=== PATIENT | male | born 1980 | race Hispanic/Latino ===

== ENCOUNTER 2019-01-20 18:33 | Emergency (ER) | payer SELFPAY ==
[2019-01-20] MEDS ORDERED: KETOROLAC 30 MG/1 ML INJ IV ONE (19:18)
[2019-01-20] MEDS ORDERED: SODIUM CHLORIDE 0.9% 1000 ML 1,000 ML IV ONE (19:19)
[2019-01-20] MEDS ORDERED: ONDANSETRON 4 MG/2 ML INJ IV ONE (19:19)
[2019-01-20 19:40] LABS: Basophils % (Auto) 0.5 % (0.0-1.8); Eosinophils # (Auto) 0.4 K/mm3 (0.0-0.4); Eosinophils % (Auto) 3.9 % (0.0-4.3); Hematocrit 40.8 % (35.5-45.6); Hemoglobin 13.7 gm/dl (11.8-15.2); Lymphocytes # (Auto) 1.4 K/mm3 (1.2-5.4); Mean Corpuscular HGB Conc 34 % (32-34); Mean Corpuscular Volume 97 fl (84-94); Monocytes # (Auto) 1.3 K/mm3 (0.0-0.8); Monocytes % (Auto) 13.8 % (0.0-7.3); Platelet Count 226 K/mm3 (140-440); Red Blood Count 4.19 M/mm3 (3.65-5.03); Red Cell Distribution Width 12.6 % (13.2-15.2)
[2019-01-20 20:02] LABS: Alanine Aminotransferase 30 units/L (7-56); Albumin 3.8 g/dL (3.9-5); BUN/Creatinine Ratio 16; Blood Urea Nitrogen 18 mg/dL (9-20); Calcium 8.8 mg/dL (8.4-10.2); Hemolysis Index 6
[2019-01-20] MEDS ORDERED: SULFAMETHOXAZOLE/TRIMETHOPRIM 800/160MG DS TAB PO ONE (20:15)
[2019-01-20] MEDS ORDERED: oxyCODONE /ACETAMINOPHEN 5-325MG TAB PO ONE (20:15)
[2019-01-20 20:16] LABS: Erythrocyte Sedimentation Rate 8 mm/Hr (0-20)
--- NOTE | 2019-01-20 20:27 | Emergency Department Report ---
ED Extremity Problem HPI - General Chief complaint: Extremity Problem,Nontraumatic Stated complaint: RT LEG PAIN Source: patient Mode of arrival: Ambulatory Limitations: No Limitations - History of Present Illness Initial comments: Patient is a 38-year-old white male with no past medical history who presents to the ED with complaint of acute onset persistent severe right foot pain with swelling due to erythematous maculopapular nonfluctuant rash on the dorsal right foot for the last 4 days. Patient states that the pain and the swelling got worse in the last 2 days. Patient denies dizziness, traumatic injury, nausea, vomiting, fever, chills, numbness and tingling or weakness of the right foot. Patient states that the pain is worse with any weightbearing or ambulation. MD Complaint: extremity pain (right foot), extremity swelling (right foor), other (Erythematous painful swollen right foot) -: Sudden, days(s) (4) Location: right, lower extremity (foot) History of Same: No -: Yes arthralgia, No fever, No associated dyspnea, No associated chest pain Radiation: none Severity scale (0 -10): 9 Quality: aching, sharp, constant Improves with: nothing Worsens with: weight bearing, walking, palpation Associated Symptoms: denies other symptoms, arthralgias, rash (erythematous maculopapular nonfluctuant rash). denies: chest pain, shortness of breath, fever, myalgias - Related Data Previous Rx's Medication Instructions Recorded Last Taken Type Clindamycin [Clindamycin CAP] 300 mg PO Q8HR #60 capsule 01/20/19 Unknown Rx HYDROcodone/APAP 5-325 [Balsam 1 each PO Q6HR PRN #12 tablet 01/20/19 Unknown Rx 5/325] Ibuprofen [Motrin] 800 mg PO Q8HR PRN #24 tablet 01/20/19 Unknown Rx Ondansetron [Zofran Odt] 4 mg PO Q6HR PRN #15 tab.rapdis 01/20/19 Unknown Rx Sulfamethoxazole/Trimethoprim 1 each PO Q12H #20 tablet 01/20/19 Unknown Rx [Bactrim DS TAB] Allergies Allergy/AdvReac Type Severity Reaction Status Date / Time No Known Allergies Allergy Unverified 01/20/19 18:38 ED Review of Systems ROS: Stated complaint: RT LEG PAIN Other details as noted in HPI Constitutional: denies: chills, fever Eyes: denies: eye pain, eye discharge, vision change ENT: denies: ear pain, throat pain Respiratory: denies: cough, shortness of breath, wheezing Cardiovascular: denies: chest pain, palpitations, syncope, paroxysmal nocturnal dyspnea Endocrine: no symptoms reported. denies: excessive sweating, flushing, intolerance to cold, intolerance to heat Gastrointestinal: denies: abdominal pain, nausea, vomiting, diarrhea Genitourinary: denies: urgency, dysuria Musculoskeletal: arthralgia (painful swollen dorsal foot due to erythematous maculopapular rash), myalgia. denies: back pain, joint swelling Skin: rash (erythematous micropapular nonfluctuant rash with tenderness on dorsal right foot), change in color. denies: lesions Neurological: denies: headache, weakness, paresthesias Psychiatric: denies: anxiety, depression Hematological/Lymphatic: denies: easy bleeding, easy bruising ED Past Medical Hx - Past Medical History Previous Medical History?: Yes Hx Asthma: Yes - Surgical History Past Surgical History?: No - Social History Smoking Status: Current Every Day Smoker Substance Use Type: Alcohol - Medications Home Medications: Home Medications Medication Instructions Recorded Confirmed Last Taken Type Clindamycin [Clindamycin CAP] 300 mg PO Q8HR #60 capsule 01/20/19 Unknown Rx HYDROcodone/APAP 5-325 [Balsam 1 each PO Q6HR PRN #12 tablet 01/20/19 Unknown Rx 5/325] Ibuprofen [Motrin] 800 mg PO Q8HR PRN #24 tablet 01/20/19 Unknown Rx Ondansetron [Zofran Odt] 4 mg PO Q6HR PRN #15 tab.rapdis 01/20/19 Unknown Rx Sulfamethoxazole/Trimethoprim 1 each PO Q12H #20 tablet 01/20/19 Unknown Rx [Bactrim DS TAB] ED Physical Exam - General Limitations: No Limitations General appearance: alert, in no apparent distress - Head Head exam: Present: atraumatic, normocephalic, normal inspection - Eye Eye exam: Present: normal appearance, PERRL, EOMI Pupils: Present: normal accommodation - ENT ENT exam: Present: normal exam, normal orophraynx, mucous membranes moist, TM's normal bilaterally, normal external ear exam - Neck Neck exam: Present: normal inspection, full ROM - Respiratory Respiratory exam: Present: normal lung sounds bilaterally. Absent: respiratory distress, wheezes, rales, rhonchi, chest wall tenderness, accessory muscle use, decreased breath sounds - Cardiovascular Cardiovascular Exam: Present: regular rate, normal rhythm, normal heart sounds. Absent: systolic murmur, diastolic murmur, rubs, gallop - GI/Abdominal GI/Abdominal exam: Present: soft, normal bowel sounds. Absent: tenderness, rebound, hyperactive bowel sounds, hypoactive bowel sounds, organomegaly - Rectal Rectal exam: Present: deferred - Extremities Exam Extremities exam: Present: normal inspection, full ROM, tenderness (palpable severe right foot tenderness due to erythematous maculopapular nonfluctuant rash), normal capillary refill, joint swelling - Back Exam Back exam: Present: normal inspection, full ROM. Absent: tenderness, CVA tenderness (L), muscle spasm, paraspinal tenderness - Neurological Exam Neurological exam: Present: alert, oriented X3, CN II-XII intact, normal gait - Psychiatric Psychiatric exam: Present: normal affect, normal mood - Skin Skin exam: Present: warm, dry, intact, rash (erythematous maculopapular severely tender nonfluctuant rash on the dorsal right foot), erythema, other (ulcerated monilial lesions between the toes of the right foot) ED Course Vital Signs 01/20/19 18:41 Temperature 98.1 F Pulse Rate 95 H Respiratory 16 Rate Blood Pressure 128/92 O2 Sat by Pulse 98 Oximetry - Reevaluation(s) Reevaluation #1: 01/20/19 20:28 This is a 38-year-old male who presented to the ED with painful swollen erythematous maculopapular rash in the right foot. In the ED, patient is alert and oriented 3 with normal vital signs and is not in distress but appears to be in pain. Patient was treated for pain and lab test results reviewed and are all nonactionable including lactic acid levels. Patient was treated in the ED with gentamicin 900 mg IV swollen, oral Bactrim DS 1 tablet 1, Percocet and Toradol for pain. On reevaluation, patient's pain is well controlled with medications, and patient case was discussed with the ED attending physician Dr. Mcguire who also evaluated the patient and advised the patient be discharged home on oral antibiotics and pain medications, and on nonweightbearing precautions, and the right foot treated with postop shows an patient advised to return to the ED immediately if symptoms get worse. The plan of care was discussed with the patient including the post discharge instructions on nonweightbearing and to return to the ED immediately if symptoms get worse. Patient agreed with the plan of care and promise to comply with all medications and all the instructions. ED Medical Decision Making - Lab Data Result diagrams: 01/20/19 19:23 01/20/19 19:23 - Medical Decision Making This is a 38-year-old male who presented to the ED with painful swollen erythematous maculopapular rash in the right foot. In the ED, patient is alert and oriented 3 with normal vital signs and is not in distress but appears to be in pain. Patient was treated for pain and lab test results reviewed and are all nonactionable including lactic acid levels. Patient was treated in the ED with gentamicin 900 mg IV swollen, oral Bactrim DS 1 tablet 1, Percocet and Toradol for pain. On reevaluation, patient's pain is well controlled with medications, and patient case was discussed with the ED attending physician Dr. Mcguire who also evaluated the patient and advised the patient be discharged home on oral antibiotics and pain medications, and on nonweightbearing precautions, and the right foot treated with postop shows an patient advised to return to the ED i mmediately if symptoms get worse. The plan of care was discussed with the patient including the post discharge instructions on nonweightbearing and to return to the ED immediately if symptoms get worse. Patient agreed with the plan of care and promise to comply with all medications and all the ins tructions. - Differential Diagnosis cellulitis; cutaneous foot abscess; insect bite; tinea pedis Critical care attestation.: If time is entered above; I have spent that time in minutes in the direct care of this critically ill patient, excluding procedure time. ED Disposition Clinical Impression: Cellulitis of right foot Disposition: DC-01 TO HOME OR SELFCARE Is pt being admited?: No Does the pt Need Aspirin: No Condition: Stable Instructions: Cellulitis (ED) Additional Instructions: Take medication with food, drink plenty of fluids and follow-up with your primary care physician at [facility] in 7-10 days for reevaluation. Remain non-weight bearing for the next 7-10 days. Return to the ED immediately if symptoms get worse. Prescriptions: Sulfamethoxazole/Trimethoprim [Bactrim DS TAB] 1 each PO Q12H #20 tablet Clindamycin [Clindamycin CAP] 300 mg PO Q8HR #60 capsule Ibuprofen [Motrin] 800 mg PO Q8HR PRN #24 tablet PRN Reason: Pain , Severe (7-10) HYDROcodone/APAP 5-325 [Balsam 5/325] 1 each PO Q6HR PRN #12 tablet PRN Reason: Pain Ondansetron [Zofran Odt] 4 mg PO Q6HR PRN #15 tab.rapdis PRN Reason: Nausea Referrals: [facility] [Outside] - 3-5 Days Forms: Work/School Release Form(ED) Time of Disposition: 20:33 Print Language: STATELESS
[2019-01-21 00:57] VITALS: BP 130/88
== END 2019-01-20 21:05 | disposition home or self-care (01) ==
LOC: ED 18:33
DX: L03.115 Cellulitis of right lower limb (principal); J45.909 Unspecified asthma, uncomplicated; F17.200 Nicotine dependence, unspecified, uncomplicated; Z79.1 Long term (current) use of non-steroidal anti-inflammatories (NSAID); Z79.899 Other long term (current) drug therapy
CPT/HCPCS: 36415; 80053; 82140; 85025; 85652; 87040; 96365; 96375; 99284; J1885; J2405; J7030